=== PATIENT | male | born 1955 | race Caucasian/White ===

== ENCOUNTER 2021-05-25 08:52 | Outpatient (CLI) | payer MEDICARE | END 2021-05-25 08:53 | disposition home or self-care (01) | LOC: BICULT 08:52 | PROVIDERS: ATTEND Internal Medicine | DX: Z13.6 Encounter for screening for cardiovascular disorders (principal) | CPT/HCPCS: 76775 ==

== ENCOUNTER 2023-10-04 07:01 | Outpatient (CLI) | payer OTHER | END 2023-10-04 07:02 | disposition home or self-care (01) | LOC: BICULT 07:01 | PROVIDERS: ATTEND Internal Medicine | DX: D69.6 Thrombocytopenia, unspecified (principal); K80.20 Calculus of gallbladder without cholecystitis without obstruction; K76.0 Fatty (change of) liver, not elsewhere classified; R16.2 Hepatomegaly with splenomegaly, not elsewhere classified | CPT/HCPCS: 76700 ==

== ENCOUNTER 2024-05-10 08:29 | Emergency (ER) | payer OTHER | END 2024-05-10 08:50 | disposition home or self-care (01) | LOC: ERS 08:29 | DX: S51.012A Laceration without foreign body of left elbow, initial encounter (principal); F17.290 Nicotine dependence, other tobacco product, uncomplicated; W22.8XXA Striking against or struck by other objects, initial encounter | CPT/HCPCS: 99282 ==

== ENCOUNTER 2024-06-12 07:30 | Outpatient (CLI) | payer OTHER | END 2024-06-12 11:46 | disposition home or self-care (01) | LOC: PET 07:30 | PROVIDERS: ATTEND Internal Medicine Hematology & Oncology | DX: C83.11 Mantle cell lymphoma, lymph nodes of head, face, and neck (principal); D69.59 Other secondary thrombocytopenia; K76.0 Fatty (change of) liver, not elsewhere classified; R16.1 Splenomegaly, not elsewhere classified; R59.1 Generalized enlarged lymph nodes | CPT/HCPCS: 78815; A9552 ==

== ENCOUNTER 2025-04-08 10:26 | Outpatient (CLI) | payer OTHER ==
[2025-04-08 11:52] LABS: Bacteria/HPF None Seen HPF (None Seen); Glucose, Urine (Dipstick) Greater than 1000 mg/dL (Negative); Leukocyte Negative Leu/uL (Negative); Protein, Urine (Dipstick) Negative (Neg-Trace); RBC/HPF 0-3 HPF (0-3); Specific Gravity, Urine 1.022 (1.002-1.036); WBC/HPF 0-3 HPF (0-3)
[2025-04-08 11:54] LABS: #Basophils Less than 0.03 10x3/uL (0.0-0.2); #Eosinophils Less than 0.03 10x3/uL (0.0-0.7); #Monocytes 0.55 10x3/uL (0.11-0.59); #Neutrophils 2.24 10x3/uL (1.40-6.50); %Basophils 0.2 % (0.0-1.0); %Eosinophils 0.0 % (0.0-10.0); %Lymphocytes 38.1 % (21.0-51.0); %Monocytes 12.0 % (0.0-10.0); %Neutrophils 49.0 % (42.0-75.0); Hematocrit 38.2 % (42.0-52.0); Hemoglobin 12.8 g/dL (14.0-18.0); Mean Corpuscular Hemoglobin 31.9 pg (27.0-31.0); Mean Corpuscular Volume 95.3 fL (78.0-98.0); Platelet Count 84 10x3/uL (130-400); Red Blood Cell (RBC) Count 4.01 mill/uL (4.70-6.10); White Blood Cell (WBC) Count 4.57 10x3/uL (4.8-10.8)
[2025-04-08 12:02] LABS: INR-International Normal Ratio 1.0; PTT 28.4 sec (22.9-36.1); Prothrombin Time 13.2 sec (12.0-14.7)
[2025-04-08 12:04] LABS: Anion Gap 20 mmol/L (10-20); BUN (Urea Nitrogen) 13 mg/dL (8.4-25.7); Calc. Creatinine Clearance 0 mL/min (70-130); Calcium 9.1 mg/dL (7.8-10.44); Carbon Dioxide 21 mmol/L (23-31); Chloride 101 mmol/L (98-107); Glucose 115 mg/dL (80-115); Potassium 3.8 mmol/L (3.5-5.1); Sodium 138 mmol/L (136-145)
[2025-04-08 12:15] LABS: Burr Cells SLIGHT = 2-5 cells HPF (0-1); Platelet Adequacy Comment Platelets Decreased; Polychromasia SLIGHT = 2-3 cells HPF (0-2)
== END 2025-04-08 10:27 | disposition home or self-care (01) ==
LOC: LABBT 10:26
PROVIDERS: ATTEND Urology
DX: Z01.818 Encounter for other preprocedural examination (principal); R97.20 Elevated prostate specific antigen [PSA]
CPT/HCPCS: 71046; 80048; 81001; 85025; 85610; 85730; 87086; 93005; 93010